=== PATIENT | female | born 1955 | race Caucasian/White ===

== ENCOUNTER 2020-07-12 10:27 | Emergency (ER) | payer MEDICARE ==
--- NOTE | 2020-07-12 10:47 | EDM.PDOC ---
ED HPI GENERAL MEDICAL PROBLEM - General Chief Complaint: Respiratory Problem Stated Complaint: [facility] Time Seen by Provider: 07/12/20 10:37 Source of Information: Reports: Patient, EMS - History of Present Illness INITIAL COMMENTS - FREE TEXT/NARRATIVE: 65-year-old female presents to the ED per [facility] with reported history of trouble breathing. Patient has known COPD and uses oxygen at 2 to 3 L/min by nasal cannula at home on an intermittent basis. Of note the patient flew here from her home in [place] yesterday either [place] or [facility] in [place] and then to [place]. She had to wear a mask on course in the airplane which she felt did cause significant difficulty breathing and feels this likely exacerbated her COPD. She was up a good portion of the night due to wheezing. She did use albuterol inhaler this morning without much relief. [place] that the nebulized albuterol treatment given to her by the paramedics did help more so. She can certainly talk now with no evidence of respiratory distress. Her pulse oximeter at home this morning registered 55% and therefore that is what precipitated call to the ambulance. They started her on 15 L by mask and then reduced her to 6 L by nasal cannula BP upon entry to the ED. When she was here were able to reduce her down to 3 L/min by nasal cannula. At 2 L she was only 88% on room air. On 3 L she is 94%. Still smokes a pack of cigarettes a day which she states is good for her. Has a 14-spew-umuz history. Onset: Today, Sudden Onset Date: 07/12/20 Onset Time: 01:00 Duration: Hour(s):, Chronic (She does have chronic COPD for greater than 15 years.), Getting Worse Location: Reports: Chest (Dyspnea with low O2 sats and reportedly central cyanosis at home this morning at her daughter's place.) Quality: Reports: Other (Hartness of breath) Severity: Severe Improves with: Reports: Other (Better with oxygen and albuterol nebulizer treatment by paramedics.) Worsens with: Reports: Movement Context: Reports: Other (Acute exacerbation of COPD). Denies: Activity, Exercise, Lifting, Sick Contact, Trauma Associated Symptoms: Reports: Cough, Loss of Appetite, Malaise, Shortness of Breath, Weakness (Worse this morning. Could hardly walk to the bathroom). 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 (see below) (Did use albuterol inhaler during the night) - Related Data Allergies Allergy/AdvReac Type Severity Reaction Status Date / Time acetaminophen Allergy Nausea Verified 07/12/20 11:29 [From Darvocet-N] amoxicillin Allergy Nausea Verified 07/12/20 11:29 cephalexin [From Keflex] Allergy Vomiting Verified 07/12/20 11:08 ciprofloxacin Allergy Nausea Verified 07/12/20 11:29 clavulanic acid Allergy Nausea Verified 07/12/20 11:29 [From Augmentin] diclofenac Allergy Cannot Verified 07/12/20 11:29 Remember ketorolac [From Toradol] Allergy Cannot Verified 07/12/20 11:29 Remember ondansetron [From Zofran] Allergy Vomiting Verified 07/12/20 11:29 propoxyphene Allergy Nausea Verified 07/12/20 11:29 [From Darvocet-N] rofecoxib [From Vioxx] Allergy Cannot Verified 07/12/20 11:29 Remember topiramate Allergy Cannot Verified 07/12/20 11:29 Remember tromethamine Allergy Cannot Verified 07/12/20 11:29 Remember valdecoxib [From Bextra] Allergy Cannot Verified 07/12/20 11:29 Remember Home Meds: Home Meds Albuterol Sulfate [Proair Hfa] 2 inh INH Q4H PRN 07/12/20 [History] Desvenlafaxine [Desvenlafaxine ER] 50 mg PO DAILY 07/12/20 [History] Furosemide [Lasix] 20 mg PO DAILY 07/12/20 [History] Furosemide [Lasix] 20 mg PO DAILY #14 tab 07/12/20 [Rx] Gabapentin [Neurontin] 600 mg PO TID 07/12/20 [History] Loratadine [Claritin] 10 mg PO DAILY 07/12/20 [History] Lysine HCl [l-Lysine] 500 mg PO DAILY 07/12/20 [History] Pantoprazole Sodium [Protonix] 20 mg PO DAILY 07/12/20 [History] Tiotropium [place] [Spiriva Respimat] 1 inh INH ASDIRECTED PRN 07/12/20 [History] Ubidecarenone [Coq-10] 100 mg PO DAILY 07/12/20 [History] atorvaSTATin [Lipitor] 10 mg PO DAILY 07/12/20 [History] oxyCODONE ER [OxyCONTIN] 20 mg PO DAILY 07/12/20 [History] Past Medical History HEENT History: Reports: Sinusitis Cardiovascular History: Reports: Hypertension, Other (See Below) (Takes Lasix 20 mg once daily for dependent edema.). Denies: DC (No known DC.) Respiratory History: Reports: Bronchitis, Recurrent, COPD, Pneumonia, Recurrent. Denies: Sleep Apnea Gastrointestinal History: Reports: GERD Musculoskeletal History: Reports: Osteoarthritis, Osteoporosis, Other (See Below) (Replaced on multiple occasions. Patient has had fusion of her cervical spine and 2 separate surgeries there. 3 lower back surgeries with hardware placement. Pain stimulator in her back for the last 30 years. 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 She came up from [place] yesterday by airplane ED ROS GENERAL - Review of Systems Review Of Systems: See Below Constitutional: Reports: Malaise, Weakness, Fatigue, Decreased Appetite (Not eaten yet today.). Denies: Fever, Chills, Weight Loss HEENT: Reports: Sinus Problem (Occasional problems with sinus congestion postnasal drip) Respiratory: Reports: Shortness of Breath, Wheezing, Cough. Denies: Pleuritic Chest Pain, Sputum, Hemoptysis (Nonproductive), Other Cardiovascular: Reports: Blood Pressure Problem, Dyspnea on Exertion (Mild edema lower extremities.), Edema. Denies: Chest Pain, Claudication, Orthopnea Endocrine: Reports: Fatigue ( Chronically) GI/Abdominal: Reports: Constipation (Rare problems with constipation), Other (Mild GERD.) : Reports: Frequency, Incontinence (Occasional) Musculoskeletal: Reports: Neck Pain, Shoulder Pain, Back Pain, Leg Pain, Foot Pain, Joint Pain (Knees and hips at times.) Skin: Reports: No Symptoms Neurological: Reports: Numbness, Paresthesia (Both lower extremities both lower extremities secondary to herniated disc in her back and spinal stenosis. Previous lumbar spine surgery x3.), Tingling, Difficulty Walking (Uses a walker on occasion.) Psychiatric: Reports: Depression, Other (Occasional insomnia) Hematologic/Lymphatic: Reports: No Symptoms Immunologic: Reports: No Symptoms ED EXAM, GENERAL - Physical Exam Exam: See Below Exam Limited By: No Limitations General Appearance: Alert, WD/WN, Mild Distress, Other (Patient apparently is doing much better after albuterol treatment and oxygen supplementation. She is able to speak in full sentences. Temperature is 36.9. Heart rate 67 and sinus respiratory 16 with O2 sats of 79% room air. 94% on 3 L per by nasal cannula. BP was 144/93) Eye Exam: Bilateral Eye: Normal Inspection (No scleral icterus or blepharal pallor.), PERRL Ears: Normal TMs Throat/Mouth: Normal Lips, Normal Teeth, Normal Oropharynx ( No oropharyngeal infection), Other (Is dry and shriveled.) Head: Atraumatic, Normocephalic Neck: Limited Range of Motion, Tender Lateral, Other (She has had repair of her cervical spine with fusion from a right anterior neck approach as well as a midline cervical spine operation.). No: Supple, Full Range of Motion Respiratory/Chest: Lungs Clear, Decreased Breath Sounds, Wheezing (Decreased air entry to the lower 25% lung albert bilaterally.). No: Normal Breath Sounds, Rales, Rhonchi ( Occasional mild expiratory wheezing throughout.) Cardiovascular: Regular Rate, Rhythm, No Gallop, No Murmur, No Rub. No: Normal Peripheral Pulses, No Edema Peripheral Pulses: 2+: Carotid (L), Carotid (R), Posterior Tibial (L), Posterior Tibial (R), Dorsalis Pedis (L), Dorsalis Pedis (R) GI/Abdominal: Normal Bowel Sounds, Soft, Non-Tender, No Organomegaly, Distended (Oddly distended tympany to percussion epigastrium compatible with aerophagia.), Other (Patient has had 2 sections. Total abdominal hysterectomy and she is not sure if she had her ovaries removed at that time as it was done in her 20s. I suspect they were left in.) Back Exam: Decreased Range of Motion, Other (Patient has had multiple surgical scars I believe 3 separate surgeries on her lumbar spine with hardware placement. She has had multiple surgeries for placement of a pain stimulator in her right flank back area. With recent weight loss apparently the pain stimulator was trying to come through the skin and she had to have it reimplanted. It delivers Dilaudid intrathecally.). No: Normal Inspection, Full Range of Motion Extremities: Pedal Edema (Pedal edema bilaterally. She states is a little worse than normal she believes from traveling on the airplane yesterday.), Other (Dense of mild arthritic change in both knees and limited range of motion of both hips. She has chronic severe neuropathy both lower extremities with pain secondary to spinal stenosis and herniated disc in her back.) Neurological: Alert, Oriented, CN II-XII Intact, Normal Cognition Psychiatric: Normal Affect, Normal Mood Skin Exam: Warm, Dry, Intact, Normal Color, No Rash #1 Interpretation EKG Date: 07/12/20 Time: 10:44 Rhythm: NSR Rate (Beats/Min): 78 Vancourt: RAD-Right Vancourt Deviation P-Wave: Enlarged QRS: Other (14 degrees right atrial hypertrophy pattern Q-wave V1 V2 and near Q wave V3 suggesting old anteroseptal myocardial infarction. Patient states no known history of myocardial infarction. Delayed transition of R wave. Q-wave 1 and aVL suggesting old lateral wall myocardial infarction as well.) QT: Prolonged EKG Interpretation Comments: Abnormal ECG Course - Vital Signs Last Recorded V/S: Last Vital Signs Temp 36.9 C 07/12/20 10:32 Pulse 76 07/12/20 14:23 Resp 16 07/12/20 10:32 BP 149/69 H 07/12/20 14:23 Pulse Ox 92 L 07/12/20 14:23 - Orders/Labs/Meds Orders: Active Orders 24 hr Category Date Time Status CULTURE URINE [RM] Stat Lab 07/12/20 12:40 Received Labs: Laboratory Tests 07/12/20 07/12/20 07/12/20 Range/Units 10:57 10:57 10:57 WBC 7.40 (3.98-10.04) K/mm3 RBC 5.29 H (3.98-5.22) M/mm3 Hgb 17.6 H (11.2-15.7) gm/dl Hct 54.5 H (34.1-44.9) % MCV 103.0 H (79.4-94.8) fl MCH 33.3 H (25.6-32.2) pg MCHC 32.3 (32.2-35.5) g/dl RDW Std Deviation 48.6 H (36.4-46.3) fL Plt Count 189 (182-369) K/mm3 MPV 9.5 (9.4-12.3) fl Neut % (Auto) 70.1 (34.0-71.1) % Lymph % (Auto) 21.8 (19.3-51.7) % [place] % (Auto) 5.9 (4.7-12.5) % Eos % (Auto) 1.2 (0.7-5.8) Baso % (Auto) 0.9 (0.1-1.2) % Neut # (Auto) 5.18 (1.56-6.13) K/mm3 Lymph # (Auto) 1.61 (1.18-3.74) K/mm3 [place] # (Auto) 0.44 H (0.24-0.36) K/mm3 Eos # (Auto) 0.09 (0.04-0.36) K/mm3 Baso # (Auto) 0.07 (0.01-0.08) K/mm3 PT 11.4 (9.7-12.0) SECONDS INR 1.07 APTT 28.2 (21.7-31.4) SECONDS D-Dimer, Quantitative 0.40 (0.19-0.50) mg/L Puncture Site ABG pH (7.35-7.45) ABG pCO2 (35.0-45.0) mmHg ABG pO2 (80.0-100.0) mmHg ABG HCO3 (22.0-26.0) meq/L ABG O2 Saturation (96.0-97.0) % ABG Base Excess (-2-2.0) [place] Test O2 Delivery Device Oxygen Flow Rate FiO2 (21.00-100.00) % Sodium 143 (136-145) mEq/L Potassium 4.5 (3.5-5.1) mEq/L Chloride 102 (98-107) mEq/L Carbon Dioxide 34 H (21-32) mEq/L Anion Gap 11.5 (5-15) BUN 7 (7-18) mg/dL Creatinine 0.8 (0.55-1.02) mg/dL Est Cr Clr Drug Dosing 69.99 mL/min Estimated GFR (MDRD) > 60 (>60) mL/min BUN/Creatinine Ratio 8.8 L (14-18) Glucose 114 (80-115) mg/dL Calcium 9.0 (8.5-10.1) mg/dL Magnesium 2.0 (1.8-2.4) mg/dl Total Bilirubin 0.9 (0.2-1.0) mg/dL AST 18 (15-37) U/L ALT 12 L (14-59) U/L Alkaline Phosphatase 89 (46-116) U/L CK-MB (CK-2) 2.0 (0-3.6) ng/ml Troponin I < 0.017 (0.00-0.056) ng/mL C-Reactive Protein < 0.2 (<1.0) mg/dL NT-Pro-B Natriuret Pep (0-125) pg/mL Total Protein 7.5 (6.4-8.2) g/dl Albumin 3.7 (3.4-5.0) g/dl Globulin 3.8 gm/dL Albumin/Globulin Ratio 1.0 (1-2) Urine Color (Yellow) Urine Appearance (Clear) Urine pH (5.0-8.0) Ur Specific [place] (1.005-1.030) Urine Protein (Negative) Urine Glucose (UA) (Negative) Urine Ketones (Negative) Urine Occult Blood (Negative) Urine Nitrite (Negative) Urine Bilirubin (Negative) Urine Urobilinogen (0.2-1.0) Ur Leukocyte Esterase (Negative) U Hyaline Cast (Auto) (0-5) /lpf Urine RBC (0-5) /hpf Urine WBC (0-5) /hpf Ur Squamous Epith Cells (0-5) /hpf Urine Bacteria (FEW) /hpf Urine Mucus (FEW) /hpf SARS-CoV-2 RNA (RENE) (NEGATIVE) 07/12/20 07/12/20 07/12/20 Range/Units 10:57 11:19 11:59 WBC (3.98-10.04) K/mm3 RBC (3.98-5.22) M/mm3 Hgb (11.2-15.7) gm/dl Hct (34.1-44.9) % MCV (79.4-94.8) fl MCH (25.6-32.2) pg MCHC (32.2-35.5) g/dl RDW Std Deviation (36.4-46.3) fL Plt Count (182-369) K/mm3 MPV (9.4-12.3) fl Neut % (Auto) (34.0-71.1) % Lymph % (Auto) (19.3-51.7) % [place] % (Auto) (4.7-12.5) % Eos % (Auto) (0.7-5.8) Baso % (Auto) (0.1-1.2) % Neut # (Auto) (1.56-6.13) K/mm3 Lymph # (Auto) (1.18-3.74) K/mm3 [place] # (Auto) (0.24-0.36) K/mm3 Eos # (Auto) (0.04-0.36) K/mm3 Baso # (Auto) (0.01-0.08) K/mm3 PT (9.7-12.0) SECONDS INR APTT (21.7-31.4) SECONDS D-Dimer, Quantitative (0.19-0.50) mg/L Puncture Site Rt radial ABG pH 7.38 (7.35-7.45) ABG pCO2 57.3 H (35.0-45.0) mmHg ABG pO2 73.0 L (80.0-100.0) mmHg ABG HCO3 32.9 H (22.0-26.0) meq/L ABG O2 Saturation 92.4 L (96.0-97.0) % ABG Base Excess 5.9 H (-2-2.0) [place]uel Test Positive O2 Delivery Device Nasal cannula Oxygen Flow Rate 3.0 FiO2 0.00 L (21.00-100.00) % Sodium (136-145) mEq/L Potassium (3.5-5.1) mEq/L Chloride (98-107) mEq/L Carbon Dioxide (21-32) mEq/L Anion Gap (5-15) BUN (7-18) mg/dL Creatinine (0.55-1.02) mg/dL Est Cr Clr Drug Dosing mL/min Estimated GFR (MDRD) (>60) mL/min BUN/Creatinine Ratio (14-18) Glucose (80-115) mg/dL Calcium (8.5-10.1) mg/dL Magnesium (1.8-2.4) mg/dl Total Bilirubin (0.2-1.0) mg/dL AST (15-37) U/L ALT (14-59) U/L Alkaline Phosphatase (46-116) U/L CK-MB (CK-2) (0-3.6) ng/ml Troponin I (0.00-0.056) ng/mL C-Reactive Protein (<1.0) mg/dL NT-Pro-B Natriuret Pep 3085 H (0-125) pg/mL Total Protein (6.4-8.2) g/dl Albumin (3.4-5.0) g/dl Globulin gm/dL Albumin/Globulin Ratio (1-2) Urine Color (Yellow) Urine Appearance (Clear) Urine pH (5.0-8.0) Ur Specific [place] (1.005-1.030) Urine Protein (Negative) Urine Glucose (UA) (Negative) Urine Ketones (Negative) Urine Occult Blood (Negative) Urine Nitrite (Negative) Urine Bilirubin (Negative) Urine Urobilinogen (0.2-1.0) Ur Leukocyte Esterase (Negative) U Hyaline Cast (Auto) (0-5) /lpf Urine RBC (0-5) /hpf Urine WBC (0-5) /hpf Ur Squamous Epith Cells (0-5) /hpf Urine Bacteria (FEW) /hpf Urine Mucus (FEW) /hpf SARS-CoV-2 RNA (RENE) Negative (NEGATIVE) 07/12/20 Range/Units 12:40 WBC (3.98-10.04) K/mm3 RBC (3.98-5.22) M/mm3 Hgb (11.2-15.7) gm/dl Hct (34.1-44.9) % MCV (79.4-94.8) fl MCH (25.6-32.2) pg MCHC (32.2-35.5) g/dl RDW Std Deviation (36.4-46.3) fL Plt Count (182-369) K/mm3 MPV (9.4-12.3) fl Neut % (Auto) (34.0-71.1) % Lymph % (Auto) (19.3-51.7) % [place] % (Auto) (4.7-12.5) % Eos % (Auto) (0.7-5.8) Baso % (Auto) (0.1-1.2) % Neut # (Auto) (1.56-6.13) K/mm3 Lymph # (Auto) (1.18-3.74) K/mm3 [place] # (Auto) (0.24-0.36) K/mm3 Eos # (Auto) (0.04-0.36) K/mm3 Baso # (Auto) (0.01-0.08) K/mm3 PT (9.7-12.0) SECONDS INR APTT (21.7-31.4) SECONDS D-Dimer, Quantitative (0.19-0.50) mg/L Puncture Site ABG pH (7.35-7.45) ABG pCO2 (35.0-45.0) mmHg ABG pO2 (80.0-100.0) mmHg ABG HCO3 (22.0-26.0) meq/L ABG O2 Saturation (96.0-97.0) % ABG Base Excess (-2-2.0) [place] Test O2 Delivery Device Oxygen Flow Rate FiO2 (21.00-100.00) % Sodium (136-145) mEq/L Potassium (3.5-5.1) mEq/L Chloride (98-107) mEq/L Carbon Dioxide (21-32) mEq/L Anion Gap (5-15) BUN (7-18) mg/dL Creatinine (0.55-1.02) mg/dL Est Cr Clr Drug Dosing mL/min Estimated GFR (MDRD) (>60) mL/min BUN/Creatinine Ratio (14-18) Glucose (80-115) mg/dL Calcium (8.5-10.1) mg/dL Magnesium (1.8-2.4) mg/dl Total Bilirubin (0.2-1.0) mg/dL AST (15-37) U/L ALT (14-59) U/L Alkaline Phosphatase (46-116) U/L CK-MB (CK-2) (0-3.6) ng/ml Troponin I (0.00-0.056) ng/mL C-Reactive Protein (<1.0) mg/dL NT-Pro-B Natriuret Pep (0-125) pg/mL Total Protein (6.4-8.2) g/dl Albumin (3.4-5.0) g/dl Globulin gm/dL Albumin/Globulin Ratio (1-2) Urine Color Yellow (Yellow) Urine Appearance Clear (Clear) Urine pH 6.0 (5.0-8.0) Ur Specific [place] 1.020 (1.005-1.030) Urine Protein Negative (Negative) Urine Glucose (UA) Negative (Negative) Urine Ketones Negative (Negative) Urine Occult Blood Negative (Negative) Urine Nitrite Negative (Negative) Urine Bilirubin 1+ H (Negative) Urine Urobilinogen 1.0 (0.2-1.0) Ur Leukocyte Esterase 1+ H (Negative) U Hyaline Cast (Auto) 0-5 (0-5) /lpf Urine RBC 5-10 H (0-5) /hpf Urine WBC 10-20 H (0-5) /hpf Ur Squamous Epith Cells 0-5 (0-5) /hpf Urine Bacteria Few (FEW) /hpf Urine Mucus Few (FEW) /hpf SARS-CoV-2 RNA (RENE) (NEGATIVE) Meds: Medications Discontinued Medications Generic Name Dose Route Start Last Admin Trade Name Freq PRN Reason Stop Dose Admin Albuterol/Ipratropium 3 ml 07/12/20 10:55 07/12/20 11:22 Duoneb 3.0-0.5 Mg/3 Ml NEB 3 ml Q4H PRN Administration Shortness Of Breath/wheezing Dextrose/Sodium Chloride 1,000 mls @ 100 mls/hr 07/12/20 11:00 07/12/20 11:08 Dextrose 5%-Normal Saline IV 100 mls/hr ASDIRECTED DUONG Administration - Radiology Interpretation Free Text/Narrative:: 65-year-old female who resides normally in [place], [place] presents to the ED per [facility] due to dyspnea and reported O2 sats of only 55% on pulse oximeter at home this morning. Patient has chronic severe COPD and is usually on oxygen on a intermittent basis at home at 2 to 3 L/min. She traveled by airplane all day yesterday to get to her daughter's home here in [place]. She believes wearing the mask all day on the airplane has helped precipitate her COPD exacerbation. She has no history of COVID-19 illness. Denies fever chills nausea vomiting. Unable to eat today. She did sleep in. She was up a few times during the night due to dyspnea but did not appreciate that it was necessary due to COPD. She thought it was just her exhaustion from the long day of travel. She did use her albuterol metered-dose inhaler at home this morning without relief. Paramedics were summoned and they provided oxygen initially by nonrebreather at 15 L/min and then down to 6 L/min by nasal cannula enroute to the hospital. In the ED we were able to wean her down to 3 L/min with sustained sats now of 94 to 96%. She does have diffuse wheezing throughout both lung albert. Plan labs will be done to rule out any heart failure component to her illness as ECG suggests an old anteroseptal and possibly lateral wall infarct which the patient has no history of myocardial infarction. She has chronic mild dependent edema bilaterally and usually uses Lasix 20 mg daily. She did not take this yesterday due to need to ride on an airplane. Plan DuoNeb treatment at this time. - Re-Assessments/Exams Free Text/Narrative Re-Assessment/Exam: 07/12/20 11:51 chest x-ray reveals hyperinflated lung albert bilaterally. Normal cardiac silhouette. Prominent right pulmonary artery no evidence of vascular congestion or pulmonary infiltrate. Hardware present in the cervical spine from previous surgical management. Electro stimulating wires present in the thoracic spine 07/12/20 13:11 Hematology is back. White count is normal at 7.40. The auto dif ferential shows 70% neutrophils. Hemoglobin is 17.6 with a hematocrit of 54.5 indicating modest volume depletion.MCV is elevated at 03.0. Platelet count is 189,000. PT is 11.4. INR is 1.07. PTT is 28.2. D-Dimer is 0.40.. ABG`s reveal pH of 7.38 pCO2 is 57.3 p02 is 73.0 HCO3 is 32.9. Sats are 92.4 on 02 at 3L/min. Sodium is 143. potassium is 4.5 .CL is 102. Bicarb is 34. Anion gap is 11.5.BUN is 7. Creatinine is 0.8. estimated GFR is >60. Glucose is 114. calcium is 9.0. Magnesium is 2.0. Bilirubin toatal is 0.9 AST 18 ALT is 12. Alkaline phosphatase is 89. CK-MB is 2.0 Troponin is <0.017. CRP is ,0.2 . BNP is moderately elevated at 3085. total protein is 7.5 Albumin is 3.7 07/12/20 13:44 I have discussed the findings with the patient and her daughter who is here in the department. She wishes to go home versus staying in the hospital. She is going to need an increased dose of Lasix and I am going to give her prescription for Lasix 20 mg once daily and she can take 1 in the morning and 1 in the PM. She only brought 9 tablets of Lasix with her from [place]. She is also going to need home oxygen treatment and I have relayed information to [facility] in this regard. She will be self-pay since she is out of state. She will need a home oxygen concentrator primarily. She has all the inhalers that she needs. Advised of her thick blood due to a combination of persistent cigarette smoking and chronic hypoxia she has an elevated hemoglobin and hematocrit to the point that she may well require intermittent phlebotomy. She knew about the diagnosis of congestive heart failure diagnosed about 2-1/2 years ago. Patient apparently has sleep apnea and is yet to receive her sleep apnea equipment at home. She was advised that her blood is too thick with an elevated hemoglobin and hematocrit which is secondary to continued cigarette smoking and likely chronic hypoxemia. She may well require phlebotomy to bring this under control. 07/12/20 14:13 Analysis reveals 1+ bilirubinemia 1+ leukocyte esterase. The micro shows 5-10 RBCs per high-power field and 10-20 WBCs per high-power field. Very few bacteria appreciated. Urine culture will be ordered. Covid 19 screen is negative. Departure - Departure Time of Disposition: 13:50 Disposition: Home, Self-Care 01 Condition: Fair Clinical Impression: COPD with exacerbation CHF (congestive heart failure), NYHA class II Qualifiers: Congestive heart failure type: diastolic Congestive heart failure chronicity: acute on chronic Qualified Code(s): I50.33 - Acute on chronic diastolic (congestive) heart failure - Discharge Information *PRESCRIPTION DRUG MONITORING PROGRAM REVIEWED*: Not Applicable *COPY OF PRESCRIPTION DRUG MONITORING REPORT IN PATIENT ARIELLE: Not Applicable Prescriptions: Furosemide [Lasix] 20 mg PO DAILY #14 tab Instructions: Chronic Obstructive Pulmonary Disease Exacerbation, [id number] Referrals: PCP,Not In Area [Primary Care Provider] - Forms: ED Department Discharge Additional Instructions: Evaluation in the emergency room today in regards to an acute exacerbation of chronic obstructive pulmonary disease. Associated mild to moderate congestive heart failure identified on lab test today. You were treated with oxygen therapy at 3 L/min/min by nasal cannula in the ED which you may need to continue at home either 2 to 3 L for the next 10 days while you are here on a as needed basis. You will need an increased dose of Lasix to 20 mg in the morning and 20 mg early afternoon between 1 and 2:00 daily to help take off some of the extra fluid in your lungs which will also help your breathing. [facility] to obtain oxygen equipment for your stay here in [place]. Sepsis Event Note (ED) - Focused Exam Vital Signs: Vital Signs Temp Pulse Resp BP Pulse Ox Pulse Ox 07/12/20 14:23 76 149/69 H 92 L 07/12/20 10:55 93 L 07/12/20 10:32 36.9 C 67 16 144/93 H 79 L 07/12/20 10:27 92 L - My Orders Last 24 Hours: My Active Orders 07/12/20 12:40 CULTURE URINE [RM] Stat - Assessment/Plan Last 24 Hours: My Active Orders 07/12/20 12:40 CULTURE URINE [RM] Stat
[2020-07-12] MEDS ORDERED: Albuterol/Ipratropium 3.0-0.5 MG/3 ML Neb Soln NEB PRN (10:55)
[2020-07-12] MEDS ORDERED: Dextrose 5%-0.9% NaCl 1,000 ML IV SCH (11:00)
--- NOTE | 2020-07-12 11:56 | CR ---
Chest: Portable view of the chest was obtained. Comparison: No previous study. Heart size is within normal limits for portable technique. Upper mediastinum is normal. Slight atelectasis is seen within the left lung base. Lungs otherwise are clear. Prior cervical spine surgery is noted. Electro-stimulating wires are seen within the thoracic spine. Mild degenerative change is seen within both shoulders. Impression: 1. Findings as noted above. 2. Nothing acute is seen. Diagnostic code #2
== END 2020-07-12 14:25 | disposition home or self-care (01) ==
LOC: JD.ED 10:27
DX: J44.1 Chronic obstructive pulmonary disease with (acute) exacerbation (principal); I11.0 Hypertensive heart disease with heart failure; I50.33 Acute on chronic diastolic (congestive) heart failure; K21.9 Gastro-esophageal reflux disease without esophagitis; M54.2 Cervicalgia; M25.519 Pain in unspecified shoulder; M54.9 Dorsalgia, unspecified; M79.673 Pain in unspecified foot; M25.561 Pain in right knee; M25.562 Pain in left knee; M25.552 Pain in left hip; M25.551 Pain in right hip; Z88.6 Allergy status to analgesic agent; Z88.0 Allergy status to penicillin; Z88.1 Allergy status to other antibiotic agents; Z88.8 Allergy status to other drugs, medicaments and biological substances; Z88.5 Allergy status to narcotic agent; Z79.899 Other long term (current) drug therapy; Z20.822 Contact with and (suspected) exposure to COVID-19
CPT/HCPCS: 36415; 36600; 71045; 80053; 81001; 82553; 82803; 83735; 83880; 84484; 85025; 85379; 85610; 85730; 86140; 87086; 94640; 99285; J7042; U0002; 93010; 99284; J7620-GY

== ENCOUNTER 2022-03-31 01:25 | Emergency (ER) | payer MEDICARE ==
[2022-03-31] MEDS ORDERED: predniSONE 20 MG Tab PO STA (02:09)
[2022-03-31 03:49] LABS: CORONAVIRUS COVID-19 NAA NEGATIVE (NEGATIVE)
== END 2022-03-31 05:00 | disposition home or self-care (01) ==
LOC: JD.ED 01:25
DX: J44.1 Chronic obstructive pulmonary disease with (acute) exacerbation (principal); I11.0 Hypertensive heart disease with heart failure; I50.9 Heart failure, unspecified; F17.210 Nicotine dependence, cigarettes, uncomplicated; E66.9 Obesity, unspecified; Z68.30 Body mass index [BMI] 30.0-30.9, adult; Z86.16 Personal history of COVID-19; Z88.6 Allergy status to analgesic agent; Z88.0 Allergy status to penicillin; Z88.1 Allergy status to other antibiotic agents; Z88.8 Allergy status to other drugs, medicaments and biological substances; Z79.899 Other long term (current) drug therapy; Z90.49 Acquired absence of other specified parts of digestive tract; Z90.710 Acquired absence of both cervix and uterus; Z20.822 Contact with and (suspected) exposure to COVID-19
CPT/HCPCS: 0241U; 36415; 36600; 71045; 80053; 82803; 83605; 83880; 84484; 85025; 85379; 87040; 93005; 99285

== ENCOUNTER 2022-06-02 18:13 | Emergency (ER) | payer MEDICARE ==
[2022-06-02] MEDS ORDERED: oxyCODONE 5 MG Tab PO STA (19:20)
[2022-06-02 20:22] LABS: ESTIMATED GFR 96 mL/min (>60)
[2022-06-02] MEDS ORDERED: Magnesium Sulfate/Water 2 GM in Premix Bag 1 BAG IV ONE (20:32)
[2022-06-02] MEDS ORDERED: Orphenadrine 100 MG Tab.ER PO STA (21:01)
[2022-06-02] MEDS ORDERED: Potassium Chloride 20 MEQ Tab.ER PO STA (22:52)
== END 2022-06-02 23:35 | disposition home or self-care (01) ==
LOC: JD.ED 18:13
DX: R07.82 Intercostal pain (principal); E87.6 Hypokalemia; E83.42 Hypomagnesemia; J44.9 Chronic obstructive pulmonary disease, unspecified; F17.210 Nicotine dependence, cigarettes, uncomplicated; E66.9 Obesity, unspecified; Z68.30 Body mass index [BMI] 30.0-30.9, adult; Z86.16 Personal history of COVID-19; Z88.0 Allergy status to penicillin; Z88.1 Allergy status to other antibiotic agents; Z88.8 Allergy status to other drugs, medicaments and biological substances; Z79.899 Other long term (current) drug therapy
CPT/HCPCS: 36415; 71046; 71046-26; 80053; 83735; 83880; 84484; 85025; 85379; 85610; 85730; 93005; 96365; 96366; 99285-25; A9270-GY; J3475

== ENCOUNTER 2022-08-09 18:57 | Emergency (ER) | payer MEDICARE ==
[2022-08-09] MEDS ORDERED: Dextrose 5%-0.9% NaCl 1,000 ML IV SCH (19:30)
[2022-08-09] MEDS ORDERED: Albuterol/Ipratropium 3.0-0.5 MG/3 ML Neb Soln NEB PRN (19:33)
[2022-08-09] MEDS ORDERED: methylPREDNISolone Sodium Succinate 125 MG/2 ML SDV IVPUSH ONE (19:50)
[2022-08-09 20:14] LABS: ESTIMATED GFR 82 mL/min (>60)
[2022-08-09] MEDS ORDERED: Albuterol/Ipratropium 3.0-0.5 MG/3 ML Neb Soln NEB ONE (20:24)
[2022-08-09] MEDS ORDERED: predniSONE 20 MG Tab PO ONE (20:58)
== END 2022-08-09 21:33 | disposition home or self-care (01) ==
LOC: JD.ED 18:57
DX: J44.1 Chronic obstructive pulmonary disease with (acute) exacerbation (principal); E78.00 Pure hypercholesterolemia, unspecified; I11.0 Hypertensive heart disease with heart failure; I50.9 Heart failure, unspecified; F17.210 Nicotine dependence, cigarettes, uncomplicated; E66.9 Obesity, unspecified; Z68.33 Body mass index [BMI] 33.0-33.9, adult; Z86.16 Personal history of COVID-19; Z88.0 Allergy status to penicillin; Z88.1 Allergy status to other antibiotic agents; Z88.8 Allergy status to other drugs, medicaments and biological substances; Z79.899 Other long term (current) drug therapy
CPT/HCPCS: 36415; 36600; 71045; 80053; 81001; 82009; 82803; 83735; 83880; 84484; 85025; 85610; 86140; 93005; 94640; 99285; J7512; 93010; 99284; J7620-GY

== ENCOUNTER 2022-08-27 07:00 | Day surgery (SDC) | payer MEDICARE ==
[~2022-08-27 07:00] MED LIST: Lactated Ringers 1,000 ML IV SCH; Lidocaine 1%/Sod Bicarbonate in NS 8.4% 1 ML Syringe IDERM PRN; Sodium Chloride 0.9% 10 ML Syringe FLUSH PRN; Sodium Chloride 0.9% 10 ML Syringe FLUSH SCH
[2022-08-27] MEDS ORDERED: Bupivacaine 0.25% 10 ML SDV ONE (07:11)
[2022-08-27] MEDS ORDERED: Lidocaine 0.5% 50 ML SDV ONE (07:16)
[2022-08-27] MEDS ORDERED: Sodium Bicarbonate 8.4% 50 MEQ/50 ML SDV ONE (07:16)
[2022-08-27] MEDS ORDERED: Lidocaine 1% 10 ML MDV ONE (07:24)
[2022-08-27] MEDS ORDERED: ceFAZolin 2 GM Vial ONE (08:15)
== END 2022-08-27 09:41 | disposition home or self-care (01) ==
LOC: JD.SDS 07:00
PROVIDERS: ATTEND Orthopaedic Surgery
DX: M67.432 Ganglion, left wrist (principal); G56.02 Carpal tunnel syndrome, left upper limb; J44.9 Chronic obstructive pulmonary disease, unspecified; K21.9 Gastro-esophageal reflux disease without esophagitis; I50.9 Heart failure, unspecified; F32.A Depression, unspecified; E78.00 Pure hypercholesterolemia, unspecified; G43.909 Migraine, unspecified, not intractable, without status migrainosus; G62.9 Polyneuropathy, unspecified; F17.210 Nicotine dependence, cigarettes, uncomplicated; Z88.1 Allergy status to other antibiotic agents; Z79.899 Other long term (current) drug therapy; Z91.048 Other nonmedicinal substance allergy status; Z88.8 Allergy status to other drugs, medicaments and biological substances
CPT/HCPCS: 25111; 64721; J0690; J3490; J7120; 01810

== ENCOUNTER 2022-10-30 15:33 | Emergency (ER) | payer MEDICARE ==
[2022-10-30] MEDS ORDERED: Sodium Chloride 0.9% 10 ML Syringe FLUSH PRN (16:03)
[2022-10-30 16:44] LABS: BASOPHILS ABSOLUTE AUTO 0.06 K/mm3 (0.01-0.08); BASOPHILS PERCENT AUTO 0.7 % (0.1-1.2); EOSINOPHILS ABSOLUTE AUTO 0.13 K/mm3 (0.04-0.36); EOSINOPHILS PERCENT AUTO 1.5 (0.7-5.8); HEMATOCRIT 44.5 % (34.1-44.9); HEMOGLOBIN 15.1 gm/dl (11.2-15.7); IMMATURE GRAN ABSOLUTE AUTO 0.01 K/mm3 (0.00-0.10); IMMATURE GRAN PERCENT AUTO 0.1 % (<=1.0); LYMPHOCYTES ABSOLUTE AUTO 1.92 K/mm3 (1.18-3.74); LYMPHOCYTES PERCENT AUTO 22.4 % (19.3-51.7); MEAN CORPUSCULAR HEMOGLOBIN 32.2 pg (25.6-32.2); MEAN CORPUSCULAR HGB CONC 33.9 g/dl (32.2-35.5); MEAN CORPUSCULAR VOLUME 94.9 fl (79.4-94.8); MONOCYTES ABSOLUTE AUTO 0.77 K/mm3 (0.24-0.36); NEUTROPHILS PERCENT AUTO 66.3 % (34.0-71.1); PLATELET COUNT,PLT 252 K/mm3 (182-369); RED BLOOD CELL COUNT 4.69 M/mm3 (3.98-5.22); WHITE BLOOD CELL COUNT,WBC 8.59 K/mm3 (3.98-10.04)
[2022-10-30 16:58] LABS: ALANINE AMINOTRANSFERASE,ALT 19 U/L (14-59); ALBUMIN 3.8 g/dl (3.4-5.0); ALKALINE PHOSPHATASE 100 U/L (46-116); ANION GAP 10.9 (5-15); ASPARTATE AMNIOTRANSFERASE,AST 21 U/L (15-37); BILIRUBIN TOTAL 0.5 mg/dL (0.2-1.0); BLOOD UREA NITROGEN,BUN 8 mg/dL (7-18); BUN/CREATININE RATIO 8.9 (14-18); C-REACTIVE PROTEIN <0.2 mg/dL (<1.0); CALCIUM 9.2 mg/dL (8.5-10.1); CARBON DIOXIDE,CO2 31 mEq/L (21-32); CHLORIDE,CL 102 mEq/L (98-107); CREATININE 0.9 mg/dL (0.55-1.02); ESTIMATED GFR 71 mL/min (>60); GLUCOSE RANDOM 116 mg/dL (70-99); POTASSIUM,K 3.9 mEq/L (3.5-5.1); PROTEIN TOTAL,TP 7.8 g/dl (6.4-8.2); SODIUM,NA 140 mEq/L (136-145)
[2022-10-30 17:31] LABS: APPEARANCE,URINE CLEAR (Clear); BILIRUBIN,URINE NEGATIVE (Negative); COLOR,URINE YELLOW (Yellow); GLUCOSE,URINE NEGATIVE (Negative); KETONES,URINE NEGATIVE (Negative); LEUKOCYTE ESTERASE,URINE TRACE (Negative); NITRITE,URINE NEGATIVE (Negative); OCCULT BLOOD,URINE NEGATIVE (Negative); PROTEIN,URINE NEGATIVE (Negative)
[2022-10-30 17:39] LABS: BACTERIA,URINE MODERATE /hpf (FEW); MUCUS,URINE FEW /hpf (FEW); RBC,URINE 0-5 /hpf (0-5); SQUAMOUS EPITHELIAL CELLS,UR 0-5 /hpf (0-5); WBC,URINE 20-30 /hpf (0-5)
[2022-10-30] MEDS ORDERED: Nitrofurantoin Monohydrate/Macrocrystalline 100 MG Cap PO ONE (17:53)
== END 2022-10-30 18:15 | disposition home or self-care (01) ==
LOC: JD.ED 15:33
DX: N30.00 Acute cystitis without hematuria (principal); J30.2 Other seasonal allergic rhinitis; J44.9 Chronic obstructive pulmonary disease, unspecified; K21.9 Gastro-esophageal reflux disease without esophagitis; E66.9 Obesity, unspecified; Z68.30 Body mass index [BMI] 30.0-30.9, adult; Z88.8 Allergy status to other drugs, medicaments and biological substances; Z88.1 Allergy status to other antibiotic agents; Z72.0 Tobacco use; Z86.16 Personal history of COVID-19
CPT/HCPCS: 36415; 71045; 80053; 81001; 85025; 86140; 87086; 87088; 87186; 99284; A9270; J3490

== ENCOUNTER 2022-10-31 18:58 | Emergency (ER) | payer MEDICARE ==
[2022-10-31] MEDS ORDERED: Lactated Ringers 500 ML IV ONE (21:12)
[2022-10-31] MEDS ORDERED: Lactated Ringers 1,000 ML IV SCH (21:15)
[2022-10-31] MEDS ORDERED: Promethazine 12.5 MG in Sodium Chloride 0.9% 50 ML IV ONE (21:16)
[2022-10-31 21:33] LABS: BASOPHILS ABSOLUTE AUTO 0.03 K/mm3 (0.01-0.08); BASOPHILS PERCENT AUTO 0.3 % (0.1-1.2); EOSINOPHILS ABSOLUTE AUTO 0.02 K/mm3 (0.04-0.36); EOSINOPHILS PERCENT AUTO 0.2 (0.7-5.8); HEMATOCRIT 46.2 % (34.1-44.9); HEMOGLOBIN 15.9 gm/dl (11.2-15.7); IMMATURE GRAN ABSOLUTE AUTO 0.01 K/mm3 (0.00-0.10); IMMATURE GRAN PERCENT AUTO 0.1 % (<=1.0); LYMPHOCYTES ABSOLUTE AUTO 1.29 K/mm3 (1.18-3.74); LYMPHOCYTES PERCENT AUTO 13.9 % (19.3-51.7); MEAN CORPUSCULAR HEMOGLOBIN 31.9 pg (25.6-32.2); MEAN CORPUSCULAR HGB CONC 34.4 g/dl (32.2-35.5); MEAN CORPUSCULAR VOLUME 92.6 fl (79.4-94.8); MONOCYTES ABSOLUTE AUTO 0.53 K/mm3 (0.24-0.36); MONOCYTES PERCENT AUTO 5.7 % (4.7-12.5); NEUTROPHILS ABSOLUTE AUTO 7.39 K/mm3 (1.56-6.13); NEUTROPHILS PERCENT AUTO 79.8 % (34.0-71.1); PLATELET COUNT,PLT 253 K/mm3 (182-369); RED BLOOD CELL COUNT 4.99 M/mm3 (3.98-5.22); WHITE BLOOD CELL COUNT,WBC 9.27 K/mm3 (3.98-10.04)
[2022-10-31 22:01] LABS: ALANINE AMINOTRANSFERASE,ALT 22 U/L (14-59); ALBUMIN 3.9 g/dl (3.4-5.0); ALKALINE PHOSPHATASE 103 U/L (46-116); ANION GAP 13.9 (5-15); ASPARTATE AMNIOTRANSFERASE,AST 34 U/L (15-37); BILIRUBIN TOTAL 1.4 mg/dL (0.2-1.0); BLOOD UREA NITROGEN,BUN 9 mg/dL (7-18); BUN/CREATININE RATIO 12.9 (14-18); CALCIUM 9.5 mg/dL (8.5-10.1); CARBON DIOXIDE,CO2 27 mEq/L (21-32); CHLORIDE,CL 99 mEq/L (98-107); CREATININE 0.7 mg/dL (0.55-1.02); ESTIMATED GFR 96 mL/min (>60); GLUCOSE RANDOM 137 mg/dL (70-99); LIPASE 45 U/L (73-393); POTASSIUM,K 3.9 mEq/L (3.5-5.1); SODIUM,NA 136 mEq/L (136-145)
[2022-10-31] MEDS ORDERED: Metoclopramide 10 MG/2 ML SDV IVPUSH ONE (23:48)
[2022-10-31] MEDS ORDERED: diphenhydrAMINE 50 MG/ML SDV IVPUSH ONE (23:50)
== END 2022-11-01 01:19 | disposition home or self-care (01) ==
LOC: JD.ED 18:58
DX: N30.00 Acute cystitis without hematuria (principal); R11.2 Nausea with vomiting, unspecified; I50.9 Heart failure, unspecified; J44.9 Chronic obstructive pulmonary disease, unspecified; K21.9 Gastro-esophageal reflux disease without esophagitis; E66.9 Obesity, unspecified; Z88.8 Allergy status to other drugs, medicaments and biological substances; Z88.6 Allergy status to analgesic agent; Z88.0 Allergy status to penicillin; Z88.1 Allergy status to other antibiotic agents; Z88.5 Allergy status to narcotic agent; Z79.899 Other long term (current) drug therapy; Z86.16 Personal history of COVID-19; Z98.890 Other specified postprocedural states
CPT/HCPCS: 36415; 80053; 83690; 85025; 96361; 96365; 96375; 99284; J1200; J2550; J2765; J3490; J7120

== ENCOUNTER 2023-06-02 06:28 | Emergency (ER) | payer MEDICARE ==
[2023-06-02] MEDS ORDERED: Sodium Chloride 0.9% 10 ML Syringe FLUSH PRN (07:24)
[2023-06-02] MEDS ORDERED: Iopamidol 755 Mg/ML 100 ML Bottle IVPUSH ONE (07:29)
[2023-06-02] MEDS ORDERED: Sodium Chloride 0.9% 10 ML Syringe IARTIC ONE (07:29)
[2023-06-02] MEDS ORDERED: Sodium Chloride 0.9% 100 ML IV SCH (07:30)
[2023-06-02 08:26] LABS: BASOPHILS ABSOLUTE AUTO 0.1 K/mm3 (0.0-0.2); BASOPHILS PERCENT AUTO 1.1 % (0.0-1.0); EOSINOPHILS ABSOLUTE AUTO 0.3 K/mm3 (0.0-0.4); EOSINOPHILS PERCENT AUTO 3.1 % (0.0-6.0); HEMATOCRIT 45.8 % (37.0-47.0); HEMOGLOBIN 15.9 gm/dl (12.0-16.0); IMMATURE GRAN ABSOLUTE AUTO 0.02 K/mm3 (0.00-0.05); IMMATURE GRAN PERCENT AUTO 0.2 % (0.0-0.4); LYMPHOCYTES ABSOLUTE AUTO 1.5 K/mm3 (1.0-4.8); LYMPHOCYTES PERCENT AUTO 19.2 % (24.0-44.0); MEAN CORPUSCULAR HEMOGLOBIN 33.1 pg (28.0-32.0); MEAN CORPUSCULAR HGB CONC 34.7 g/dl (32.0-36.0); MEAN CORPUSCULAR VOLUME 95.2 fl (83.0-99.0); MEAN PLATELET VOLUME 9.4 fl (9.4-12.3); MONOCYTES ABSOLUTE AUTO 0.6 K/mm3 (0.0-0.8); NEUTROPHILS ABSOLUTE AUTO 5.6 K/mm3 (1.8-7.7); NEUTROPHILS PERCENT AUTO 69.4 % (41.0-71.0); PLATELET COUNT,PLT 199 K/mm3 (150-400); RED BLOOD CELL COUNT 4.81 M/mm3 (4.10-5.30); WHITE BLOOD CELL COUNT,WBC 8.04 K/mm3 (3.9-11.3)
[2023-06-02 08:38] LABS: CORONAVIRUS COVID-19 NAA NEGATIVE (NEGATIVE); INFLUENZA A NAA NEGATIVE (NEGATIVE); RESPIRATORY SYNCYTIAL VIR NAA NEGATIVE (NEGATIVE)
[2023-06-02 08:50] LABS: A/G RATIO 0.8 (1-2); ALANINE AMINOTRANSFERASE,ALT 14 U/L (14-59); ALBUMIN 3.1 g/dl (3.4-5.0); ALKALINE PHOSPHATASE 86 U/L (46-116); ANION GAP 9.4 (5-15); ASPARTATE AMNIOTRANSFERASE,AST 20 U/L (15-37); BILIRUBIN TOTAL 0.4 mg/dL (0.2-1.0); BLOOD UREA NITROGEN,BUN 4 mg/dL (7-18); BUN/CREATININE RATIO 6.7 (14-18); CALCIUM 8.4 mg/dL (8.5-10.1); CARBON DIOXIDE,CO2 31 mEq/L (21-32); CHLORIDE,CL 102 mEq/L (98-107); CREATININE 0.6 mg/dL (0.55-1.02); ESTIMATED GFR 99 mL/min (>60); GLUCOSE RANDOM 109 mg/dL (70-99); MAGNESIUM 1.6 mg/dL (1.8-2.4); POTASSIUM,K 3.4 mEq/L (3.5-5.1); PROTEIN TOTAL,TP 6.8 g/dl (6.4-8.2); SODIUM,NA 139 mEq/L (136-145)
[2023-06-02] MEDS ORDERED: Magnesium Sulfate/Water 2 GM in Premix Bag 1 BAG IV ONE (08:59)
[2023-06-02] MEDS ORDERED: HYDROmorphone 1 MG/ML Syringe IVPUSH ONE (09:05)
[2023-06-02] MEDS ORDERED: Naloxone 0.4 MG/ML SDV IVPUSH PRN (09:05)
== END 2023-06-02 11:11 | disposition home or self-care (01) ==
LOC: JD.ED 06:28
DX: G89.29 Other chronic pain (principal); F19.20 Other psychoactive substance dependence, uncomplicated; R51.9 Headache, unspecified; E83.42 Hypomagnesemia; I50.9 Heart failure, unspecified; K21.9 Gastro-esophageal reflux disease without esophagitis; J44.9 Chronic obstructive pulmonary disease, unspecified; Z86.16 Personal history of COVID-19; Z87.891 Personal history of nicotine dependence; Z20.822 Contact with and (suspected) exposure to COVID-19; Z90.710 Acquired absence of both cervix and uterus; Z88.1 Allergy status to other antibiotic agents; Z88.8 Allergy status to other drugs, medicaments and biological substances; Z88.5 Allergy status to narcotic agent; Z88.6 Allergy status to analgesic agent; Z88.0 Allergy status to penicillin; Z79.899 Other long term (current) drug therapy
CPT/HCPCS: 0241U; 36415; 70450; 70496; 80053; 83735; 85025; 96365; 96366; 96375; 99284; J1170; J3475; J3490; Q9967

== ENCOUNTER 2023-09-02 16:19 | Emergency (ER) | payer MEDICARE, MEDICAID | END 2023-09-02 19:39 | disposition home or self-care (01) | LOC: JD.ED 16:19 | DX: R20.2 Paresthesia of skin (principal); M48.061 Spinal stenosis, lumbar region without neurogenic claudication; R15.9 Full incontinence of feces; F17.210 Nicotine dependence, cigarettes, uncomplicated; J44.9 Chronic obstructive pulmonary disease, unspecified; I50.9 Heart failure, unspecified; K21.9 Gastro-esophageal reflux disease without esophagitis; E66.9 Obesity, unspecified; Z79.899 Other long term (current) drug therapy; Z88.1 Allergy status to other antibiotic agents; Z88.8 Allergy status to other drugs, medicaments and biological substances | CPT/HCPCS: 72131; 72131-26; 99283; 99284 ==

== ENCOUNTER 2023-11-02 20:50 | Emergency (ER) | payer MEDICARE, MEDICAID ==
[2023-11-02] MEDS ORDERED: Sodium Chloride 0.9% 10 ML Syringe FLUSH PRN (21:01)
[2023-11-02] MEDS: Iopamidol 755 Mg/ML 100 ML Bottle IVPUSH ONE (21:13)
[2023-11-02] MEDS ORDERED: Sodium Chloride 0.9% 100 ML IV SCH (21:15)
[2023-11-02 21:44] LABS: BASOPHILS ABSOLUTE AUTO 0.1 K/mm3 (0.0-0.2); BASOPHILS PERCENT AUTO 0.8 % (0.0-1.0); EOSINOPHILS ABSOLUTE AUTO 0.6 K/mm3 (0.0-0.4); EOSINOPHILS PERCENT AUTO 7.9 % (0.0-6.0); HEMATOCRIT 40.2 % (37.0-47.0); HEMOGLOBIN 13.1 gm/dl (12.0-16.0); IMMATURE GRAN ABSOLUTE AUTO 0.02 K/mm3 (0.00-0.05); IMMATURE GRAN PERCENT AUTO 0.3 % (0.0-0.4); LYMPHOCYTES ABSOLUTE AUTO 2.3 K/mm3 (1.0-4.8); LYMPHOCYTES PERCENT AUTO 31.9 % (24.0-44.0); MEAN CORPUSCULAR HEMOGLOBIN 32.4 pg (28.0-32.0); MEAN CORPUSCULAR HGB CONC 32.6 g/dl (32.0-36.0); MEAN CORPUSCULAR VOLUME 99.5 fl (83.0-99.0); MEAN PLATELET VOLUME 9.8 fl (9.4-12.3); MONOCYTES ABSOLUTE AUTO 0.7 K/mm3 (0.0-0.8); MONOCYTES PERCENT AUTO 10.2 % (0.0-8.0); NEUTROPHILS ABSOLUTE AUTO 3.5 K/mm3 (1.8-7.7); NEUTROPHILS PERCENT AUTO 48.9 % (41.0-71.0); PLATELET COUNT,PLT 201 K/mm3 (150-400); RED BLOOD CELL COUNT 4.04 M/mm3 (4.10-5.30); WHITE BLOOD CELL COUNT,WBC 7.09 K/mm3 (3.9-11.3)
[2023-11-02 21:50] LABS: INR 0.98; PROTHROMBIN TIME 10.5 SECONDS (9.7-12.0)
[2023-11-02 21:51] LABS: PTT,PARTIAL THROMBOPLSTIN TIME 27.6 SECONDS (21.7-31.4)
[2023-11-02 21:53] LABS: A/G RATIO 0.9 (1-2); ANION GAP 6.2 (5-15); BILIRUBIN TOTAL 0.2 mg/dL (0.2-1.0); CALCIUM 8.2 mg/dL (8.5-10.1); CREATININE 0.9 mg/dL (0.55-1.02); EST CRCL DRUG DOSING (CG) 48.63 mL/min; MAGNESIUM 1.6 mg/dL (1.8-2.4); POTASSIUM,K 4.2 mEq/L (3.5-5.1); PROTEIN TOTAL,TP 6.5 g/dl (6.4-8.2)
[2023-11-03] MEDS: HYDROmorphone 2 MG Tab PO STA (04:26)
== END 2023-11-03 10:35 | disposition home or self-care (01) ==
LOC: JD.ED 20:50
DX: G51.0 Bell's palsy (principal); I50.9 Heart failure, unspecified; J44.89 Other specified chronic obstructive pulmonary disease; K21.9 Gastro-esophageal reflux disease without esophagitis; G62.9 Polyneuropathy, unspecified; Z88.8 Allergy status to other drugs, medicaments and biological substances; Z88.5 Allergy status to narcotic agent; Z88.1 Allergy status to other antibiotic agents; Z79.899 Other long term (current) drug therapy; Z79.51 Long term (current) use of inhaled steroids; Z87.891 Personal history of nicotine dependence
CPT/HCPCS: 36415; 70450; 70450-26; 70496; 70496-26; 70498; 70498-26; 80053; 83735; 84484; 85025; 85610; 85730; 93010; 99284; 99285; A9270-GY; Q9967

== ENCOUNTER 2024-05-26 09:17 | Emergency (ER) | payer MEDICARE, MEDICAID ==
[2024-05-26] MEDS ORDERED: Sodium Chloride 0.9% 10 ML Syringe FLUSH PRN (09:38)
[2024-05-26 09:59] LABS: BASOPHILS ABSOLUTE AUTO 0.1 K/mm3 (0.0-0.2); BASOPHILS PERCENT AUTO 1.2 % (0.0-1.0); EOSINOPHILS ABSOLUTE AUTO 0.4 K/mm3 (0.0-0.4); EOSINOPHILS PERCENT AUTO 5.6 % (0.0-6.0); HEMATOCRIT 45.1 % (37.0-47.0); HEMOGLOBIN 15.3 gm/dl (12.0-16.0); IMMATURE GRAN ABSOLUTE AUTO 0.01 K/mm3 (0.00-0.05); IMMATURE GRAN PERCENT AUTO 0.1 % (0.0-0.4); LYMPHOCYTES ABSOLUTE AUTO 1.6 K/mm3 (1.0-4.8); LYMPHOCYTES PERCENT AUTO 20.7 % (24.0-44.0); MEAN CORPUSCULAR HEMOGLOBIN 32.1 pg (28.0-32.0); MEAN CORPUSCULAR HGB CONC 33.9 g/dl (32.0-36.0); MEAN CORPUSCULAR VOLUME 94.7 fl (83.0-99.0); MEAN PLATELET VOLUME 9.5 fl (9.4-12.3); MONOCYTES ABSOLUTE AUTO 0.7 K/mm3 (0.0-0.8); MONOCYTES PERCENT AUTO 9.3 % (0.0-8.0); NEUTROPHILS ABSOLUTE AUTO 4.8 K/mm3 (1.8-7.7); NEUTROPHILS PERCENT AUTO 63.1 % (41.0-71.0); PLATELET COUNT,PLT 231 K/mm3 (150-400); RED BLOOD CELL COUNT 4.76 M/mm3 (4.10-5.30); WHITE BLOOD CELL COUNT,WBC 7.62 K/mm3 (3.9-11.3)
[2024-05-26] MEDS: Albuterol/Ipratropium 3.0-0.5 MG/3 ML Neb Soln NEB SCH (10:01)
[2024-05-26] MEDS: methylPREDNISolone Sodium Succinate 125 MG/2 ML SDV IVPUSH ONE (10:12)
[2024-05-26 10:24] LABS: INR 0.99; PROTHROMBIN TIME 10.5 SECONDS (9.7-12.0)
[2024-05-26 10:28] LABS: LACTIC ACID 1.4 mmol/L (0.4-2.0)
[2024-05-26 10:32] LABS: ALBUMIN 3.6 g/dl (3.4-5.0); ANION GAP 10.5 (5-15); BILIRUBIN TOTAL 0.5 mg/dL (0.2-1.0); CALCIUM 8.9 mg/dL (8.5-10.1); CREATININE 0.8 mg/dL (0.55-1.02); EST CRCL DRUG DOSING (CG) 49.01 mL/min; MAGNESIUM 1.7 mg/dL (1.8-2.4); POTASSIUM,K 3.5 mEq/L (3.5-5.1); PROTEIN TOTAL,TP 7.4 g/dl (6.4-8.2)
[2024-05-26] MEDS: Albuterol/Ipratropium 3.0-0.5 MG/3 ML Neb Soln NEB ONE (13:54)
== END 2024-05-26 14:05 | disposition home or self-care (01) ==
LOC: JD.ED 09:17
DX: J44.1 Chronic obstructive pulmonary disease with (acute) exacerbation (principal); R51.9 Headache, unspecified; K21.9 Gastro-esophageal reflux disease without esophagitis; E66.9 Obesity, unspecified; F17.210 Nicotine dependence, cigarettes, uncomplicated; Z90.49 Acquired absence of other specified parts of digestive tract; Z90.710 Acquired absence of both cervix and uterus; Z88.5 Allergy status to narcotic agent; Z88.8 Allergy status to other drugs, medicaments and biological substances; Z88.0 Allergy status to penicillin; Z88.1 Allergy status to other antibiotic agents; Z79.51 Long term (current) use of inhaled steroids; Z79.52 Long term (current) use of systemic steroids; Z79.899 Other long term (current) drug therapy; Z68.32 Body mass index [BMI] 32.0-32.9, adult
CPT/HCPCS: 36415; 70450; 71045; 80053; 83605; 83735; 83880; 84484; 85025; 85610; 85730; 87040; 87428; 93005; 94640; 96374; 99285; J2919; J7620-GY

== ENCOUNTER 2024-09-03 13:43 | Emergency (ER) | payer MEDICARE, MEDICAID ==
[2024-09-03 14:52] LABS: BASOPHILS ABSOLUTE AUTO 0.1 K/mm3 (0.0-0.2); BASOPHILS PERCENT AUTO 0.5 % (0.0-1.0); EOSINOPHILS ABSOLUTE AUTO 0.3 K/mm3 (0.0-0.4); EOSINOPHILS PERCENT AUTO 3.1 % (0.0-6.0); HEMOGLOBIN 14.4 gm/dl (12.0-16.0); IMMATURE GRAN ABSOLUTE AUTO 0.03 K/mm3 (0.00-0.05); IMMATURE GRAN PERCENT AUTO 0.3 % (0.0-0.4); LYMPHOCYTES PERCENT AUTO 21.8 % (24.0-44.0); MEAN CORPUSCULAR HEMOGLOBIN 32.7 pg (28.0-32.0); MEAN CORPUSCULAR HGB CONC 33.5 g/dl (32.0-36.0); MEAN CORPUSCULAR VOLUME 97.5 fl (83.0-99.0); MEAN PLATELET VOLUME 9.2 fl (9.4-12.3); MONOCYTES ABSOLUTE AUTO 0.8 K/mm3 (0.0-0.8); MONOCYTES PERCENT AUTO 8.5 % (0.0-8.0); NEUTROPHILS PERCENT AUTO 65.8 % (41.0-71.0); PLATELET COUNT,PLT 293 K/mm3 (150-400); RED BLOOD CELL COUNT 4.41 M/mm3 (4.10-5.30); WHITE BLOOD CELL COUNT,WBC 9.18 K/mm3 (3.9-11.3)
[2024-09-03 15:19] LABS: A/G RATIO 0.8 (1-2); ALBUMIN 3.1 g/dl (3.4-5.0); ANION GAP 7.9 (5-15); BILIRUBIN TOTAL 0.3 mg/dL (0.2-1.0); BUN/CREATININE RATIO 6.3 (14-18); C-REACTIVE PROTEIN 0.45 mg/dL (<0.30); CALCIUM 8.8 mg/dL (8.5-10.1); CREATININE 0.8 mg/dL (0.55-1.02); EST CRCL DRUG DOSING (CG) 49.01 mL/min; POTASSIUM,K 3.9 mEq/L (3.5-5.1); PROTEIN TOTAL,TP 6.9 g/dl (6.4-8.2)
[2024-09-03] MEDS: Albuterol/Ipratropium 3.0-0.5 MG/3 ML Neb Soln NEB ONE (15:41)
[2024-09-03] MEDS: Sodium Chloride 0.9% 100 ML IV SCH (17:22)
[2024-09-03] MEDS: Iopamidol 612 MG/ML 100 ML Bottle IVPUSH ONE (17:22)
[2024-09-03] MEDS: Sodium Chloride 0.9% 10 ML Syringe FLUSH ONE (17:22)
== END 2024-09-03 18:20 | disposition home or self-care (01) ==
LOC: JD.ED 13:43
DX: R19.5 Other fecal abnormalities (principal); I50.9 Heart failure, unspecified; J44.9 Chronic obstructive pulmonary disease, unspecified; K21.9 Gastro-esophageal reflux disease without esophagitis; E66.9 Obesity, unspecified; Z90.49 Acquired absence of other specified parts of digestive tract; Z90.710 Acquired absence of both cervix and uterus; Z88.8 Allergy status to other drugs, medicaments and biological substances; Z88.5 Allergy status to narcotic agent; Z88.6 Allergy status to analgesic agent; Z88.1 Allergy status to other antibiotic agents; Z79.899 Other long term (current) drug therapy; Z68.32 Body mass index [BMI] 32.0-32.9, adult
CPT/HCPCS: 36415; 74177; 74177-26; 80053; 83690; 84484; 85025; 86140; 94640; 99283; 99285; A9270-GY; Q9967

== ENCOUNTER 2024-09-23 18:37 | Emergency (ER) | payer MEDICARE, MEDICAID ==
[2024-09-23] MEDS ORDERED: Sodium Chloride 0.9% 10 ML Syringe FLUSH PRN (18:49)
[2024-09-23 19:27] LABS: HEMATOCRIT 38.6 % (37.0-47.0); HEMOGLOBIN 12.7 gm/dl (12.0-16.0); MEAN CORPUSCULAR HEMOGLOBIN 32.4 pg (28.0-32.0); MEAN CORPUSCULAR HGB CONC 32.9 g/dl (32.0-36.0); MEAN CORPUSCULAR VOLUME 98.5 fl (83.0-99.0); MEAN PLATELET VOLUME 9.9 fl (9.4-12.3); PLATELET COUNT,PLT 194 K/mm3 (150-400); RED BLOOD CELL COUNT 3.92 M/mm3 (4.10-5.30); WHITE BLOOD CELL COUNT,WBC 5.73 K/mm3 (3.9-11.3)
[2024-09-23 19:34] LABS: INR 1.03; PROTHROMBIN TIME 10.9 SECONDS (9.7-12.0)
[2024-09-23 19:35] LABS: PTT,PARTIAL THROMBOPLSTIN TIME 28.8 SECONDS (21.7-31.4)
[2024-09-23 19:41] LABS: LACTIC ACID 0.5 mmol/L (0.4-2.0)
[2024-09-23 19:47] LABS: A/G RATIO 0.9 (1-2); ALANINE AMINOTRANSFERASE,ALT 30 U/L (14-59); ALBUMIN 3.3 g/dl (3.4-5.0); ALKALINE PHOSPHATASE 97 U/L (46-116); ANION GAP 10.2 (5-15); ASPARTATE AMNIOTRANSFERASE,AST 38 U/L (15-37); BILIRUBIN TOTAL 0.4 mg/dL (0.2-1.0); BLOOD UREA NITROGEN,BUN 5 mg/dL (7-18); BUN/CREATININE RATIO 6.3 (14-18); C-REACTIVE PROTEIN 1.63 mg/dL (<0.30); CALCIUM 8.3 mg/dL (8.5-10.1); CARBON DIOXIDE,CO2 32 mEq/L (21-32); CHLORIDE,CL 96 mEq/L (98-107); CREATININE 0.8 mg/dL (0.55-1.02); ESTIMATED GFR 81 mL/min (>60); GLUCOSE RANDOM 120 mg/dL (70-99); POTASSIUM,K 4.2 mEq/L (3.5-5.1); PROTEIN TOTAL,TP 6.8 g/dl (6.4-8.2); SODIUM,NA 134 mEq/L (136-145); TROPONIN I HIGH SENSITIVITY 17 pg/mL (<=51)
[2024-09-23] MEDS: Albuterol/Ipratropium 3.0-0.5 MG/3 ML Neb Soln NEB ONE (19:54)
[2024-09-23 19:55] LABS: BAND PERCENT MAN 0 % (0-10); BASOPHILS PERCENT MAN 1 (0.1-1.2); EOSINOPHILS PERCENT MAN 2 % (0.7-5.8); LYMPHOCYTES % ATYPICAL MANUAL 0 %; LYMPHOCYTES PERCENT MAN 10 % (20-40); MONOCYTES PERCENT MAN 14 % (2-10)
[2024-09-23 19:56] LABS: PLATELET COUNT ESTIMATE ADEQUATE
[2024-09-23] MEDS: predniSONE 20 MG Tab PO ONE (21:21)
[2024-09-23] MEDS: Doxycycline Monohydrate 100 MG Cap PO ONE (21:22)
== END 2024-09-23 22:10 | disposition home or self-care (01) ==
LOC: JD.ED 18:37
DX: U07.1 COVID-19 (principal); J44.1 Chronic obstructive pulmonary disease with (acute) exacerbation; J45.909 Unspecified asthma, uncomplicated; E66.9 Obesity, unspecified; K21.9 Gastro-esophageal reflux disease without esophagitis; Z88.8 Allergy status to other drugs, medicaments and biological substances; Z79.899 Other long term (current) drug therapy; Z90.710 Acquired absence of both cervix and uterus; Z90.49 Acquired absence of other specified parts of digestive tract
CPT/HCPCS: 36415; 71045; 80053; 83605; 84484; 85007; 85027; 85610; 85730; 86140; 87040; 87154; 87428; 93005; 94640; 99285; A9270; J7512; 99283

== ENCOUNTER 2025-05-08 04:14 | Emergency (ER) | payer MEDICAID, MEDICARE ==
[2025-05-08] MEDS ORDERED: Sodium Chloride 0.9% 10 ML Syringe FLUSH PRN (04:44)
[2025-05-08] MEDS: methylPREDNISolone Sodium Succinate 125 MG/2 ML SDV IVPUSH ONE (05:02)
[2025-05-08 05:39] LABS: BASOPHILS ABSOLUTE AUTO 0.1 K/mm3 (0.0-0.2); BASOPHILS PERCENT AUTO 0.8 % (0.0-1.0); EOSINOPHILS ABSOLUTE AUTO 0.5 K/mm3 (0.0-0.4); EOSINOPHILS PERCENT AUTO 3.4 % (0.0-6.0); IMMATURE GRAN ABSOLUTE AUTO 0.06 K/mm3 (0.00-0.05); IMMATURE GRAN PERCENT AUTO 0.4 % (0.0-0.4); LYMPHOCYTES ABSOLUTE AUTO 2.5 K/mm3 (1.0-4.8); LYMPHOCYTES PERCENT AUTO 18.5 % (24.0-44.0); MEAN PLATELET VOLUME 9.4 fl (9.4-12.3); MONOCYTES ABSOLUTE AUTO 1.2 K/mm3 (0.0-0.8); MONOCYTES PERCENT AUTO 9.3 % (0.0-8.0); NEUTROPHILS ABSOLUTE AUTO 9.0 K/mm3 (1.8-7.7); NEUTROPHILS PERCENT AUTO 67.6 % (41.0-71.0); NRBC ABSOLUTE 0.00 (0.00-0.02); NRBC PERCENT 0.0 % (0.0-0.2); PLATELET COUNT,PLT 283 K/mm3 (150-400); RED BLOOD CELL COUNT 3.89 M/mm3 (4.10-5.30); WHITE BLOOD CELL COUNT,WBC 13.37 K/mm3 (3.9-11.3)
[2025-05-08 06:04] LABS: A/G RATIO 0.8 (1-2); ALANINE AMINOTRANSFERASE,ALT 13.0 U/L (14-59); ASPARTATE AMNIOTRANSFERASE,AST 13.0 U/L (15-37); BILIRUBIN TOTAL 0.3 mg/dL (0.2-1.0); BLOOD UREA NITROGEN,BUN 5.0 mg/dL (7-18); CARBON DIOXIDE,CO2 34.0 mEq/L (21-32); CHLORIDE,CL 102.0 mEq/L (98-107); CREATININE 0.6 mg/dL (0.55-1.02); EST CRCL DRUG DOSING (CG) 64.46 mL/min; ESTIMATED GFR 98.0 mL/min (>60); GLUCOSE RANDOM 111.0 mg/dL (70-99); POTASSIUM,K 3.7 mEq/L (3.5-5.1); PROTEIN TOTAL,TP 6.6 g/dl (6.4-8.2); SODIUM,NA 140.0 mEq/L (136-145)
== END 2025-05-08 06:32 | disposition home or self-care (01) ==
LOC: JD.ED 04:14
DX: J44.1 Chronic obstructive pulmonary disease with (acute) exacerbation (principal); K21.9 Gastro-esophageal reflux disease without esophagitis; E66.9 Obesity, unspecified; F17.200 Nicotine dependence, unspecified, uncomplicated; Z68.30 Body mass index [BMI] 30.0-30.9, adult; Z90.49 Acquired absence of other specified parts of digestive tract; Z90.710 Acquired absence of both cervix and uterus; Z88.5 Allergy status to narcotic agent; Z88.8 Allergy status to other drugs, medicaments and biological substances; Z88.6 Allergy status to analgesic agent; Z79.899 Other long term (current) drug therapy
CPT/HCPCS: 36415; 71045; 80053; 85025; 94640; 96374; 96375; 99285; A9270; 99284; J1171; J2919